=== PATIENT | female | born 1965 | race Hispanic/Latino ===

== ENCOUNTER 2024-03-04 17:52 | Emergency (ER) | payer SELFPAY ==
[~2024-03-04] VITALS: Ht 154.9 cm; Wt 72.6 kg
[2024-03-04 18:37] VITALS: PULSE 78; RESP 16; TEMP 98.5
[2024-03-04] MEDS ORDERED: METHYLPREDNISOLONE SOD SUCC 125 MG/2ML VIAL IV STA (18:41)
[2024-03-04 19:03] VITALS: PULSE 88; RESP 20; O2SAT 96
[2024-03-04] MEDS: ALBUTEROL/IPRATROPIUM 3 ML NEB NEB STA ×3 (19:05→19:59)
[2024-03-04] MEDS: PREDNISONE 20 MG TAB PO STA (19:30)
[2024-03-04 19:57] VITALS: PULSE 84; RESP 20; O2SAT 96
[2024-03-04 20:00] LABS: STREPTOCOCCUS GRP A ANTIGEN NEGATIVE (NEGATIVE)
[2024-03-04 20:05] LABS: CORONAVIRUS COVID-19 AG NEGATIVE (NEGATIVE); INFLUENZA B AG NEGATIVE (NEGATIVE)
[2024-03-04 20:07] LABS: INFLUENZA A AG POSITIVE (NEGATIVE)
[2024-03-04] MEDS ORDERED: PREDNISONE20 MG PO (20:23)
[2024-03-04] MEDS ORDERED: TAMIFLU75 MG PO (20:23)
[2024-03-04] MEDS ORDERED: VENTOLIN HFA18 GM INH (20:23)
[2024-03-04 20:31] VITALS: BP 110/51; PULSE 87; RESP 20; TEMP 99; O2SAT 96
== END 2024-03-04 20:33 | disposition home or self-care (01) ==
LOC: ER 18:03
DX: R50.9 Fever, unspecified (principal); J10.1 Influenza due to other identified influenza virus with other respiratory manifestations; R05.9 Cough, unspecified; Z11.52 Encounter for screening for COVID-19; R94.31 Abnormal electrocardiogram [ECG] [EKG]; F17.210 Nicotine dependence, cigarettes, uncomplicated
CPT/HCPCS: 71045; 83518; 87070; 87428; 93005; 94640 ×2; 94799; 99283; J7512